=== PATIENT | female | born 1975 | race Caucasian/White ===

== ENCOUNTER 2023-09-27 11:30 | Emergency (ER) | payer BC ==
[2023-09-27] MEDS: Lidocaine 1% 5 ML VIAL INJECT ONE (13:05)
[2023-09-27] MEDS: Bacitracin Oint 1 GM U/D Packet TOP ONE (13:05)
== END 2023-09-27 13:15 | disposition home or self-care (01) ==
LOC: JP.ED 11:30
DX: S61.012A Laceration without foreign body of left thumb without damage to nail, initial encounter (principal); K21.9 Gastro-esophageal reflux disease without esophagitis; E78.00 Pure hypercholesterolemia, unspecified; F17.210 Nicotine dependence, cigarettes, uncomplicated; Z79.82 Long term (current) use of aspirin; Z79.899 Other long term (current) drug therapy; W26.8XXA Contact with other sharp object(s), not elsewhere classified, initial encounter
CPT/HCPCS: 12001; 99282